=== PATIENT | male | born 1935 | race Caucasian/White ===

== ENCOUNTER 2016-09-08 15:32 | Inpatient (IN) | payer MEDICARE, OTHER ==
--- NOTE | ~2016-09-08 | HP ---
History And Physical [id number] [place]. [address] NAME: SHAHIDA HAMILTON : 35 STATUS : ADM IN [facility]#: [id number] AGE: 81 ADM/REG DATE : 09/08/16 MR#: [id number] REPORT SERV DATE: 09/08/16 DICTATED BY: HEIDI CAPPS DATE: 09/08/16 REPORT STATUS : Draft TRANSCRIBED BY: MODL DATE: 09/08/16 DATE OF ADMISSION: 09/08/2016 CHIEF COMPLAINT: Cough keeping him up at night. HISTORY OF PRESENT ILLNESS: This is a very pleasant 81-year-old male who has past medical history notable for orthostatic hypotension, metastatic prostate cancer, CKD stage 2/3, adrenal insufficiency, history of radiation esophagitis now resolved, history of cataracts, glaucoma, acid reflux, and history of ulcerative colitis per notes, presenting with basically cough for the past couple of weeks. His cough has been keeping him up at night and severe. He says that it is a dry cough. No fevers at home. He did present a few days ago to the Oncology office where he was treated with a course of Augmentin for possible sinusitis. Cough has continued to get worse and has, per reports, had temperatures of 100.4 at home. He was seen in the office today after a chest x-ray, which calls for possible radiation pneumonitis versus bilateral upper lobe pneumonias. Per Oncology, the amount of radiation he got was pretty low which is approximately 30 Gy, will be low for getting radiation pneumonitis. In the office today, it was 84%, improved to about 86% to 88% and was put on oxygen. PAST MEDICAL HISTORY: As above. Metastatic prostate cancer, reflux, history of orthostatic hypotension, BPH, and radiation esophagitis now resolved. SOCIAL HISTORY: He is . No longer smokes or drinks. He did have a history of smoking many years ago. FAMILY HISTORY: Parents lived to be 91 and 77. He did have a maternal grandmother who had cancer. REVIEW OF SYSTEMS: A full review of systems is obtained and is negative with the exception of the above HPI. PHYSICAL EXAMINATION: VITAL SIGNS: Here today temperature 98.4, pulse 84, blood pressure 162/82, saturating 94% on room air, and breathing 21 times a minute. GENERAL: This is a well-developed, well-nourished male, who appears in no acute distress. He is currently sitting up in the bed in his room. Alert and oriented x3. HEENT: Extraocular muscles are intact. Sclerae are anicteric. Pupils equal, round, and react to light. Moist mucous membranes. CARDIAC: Regular rate and rhythm with no appreciable murmurs. LUNGS: Lungs are clear bilaterally with no wheezing. ABDOMEN: Soft, nontender, and nondistended with no appreciable masses. EXTREMITIES: Lower extremities are warm and well perfused with no edema. SKIN: Warm, dry, and intact with no rashes. PSYCHIATRIC: The patient is cooperative and appropriate. LABORATORY DATA: Done in the office was last September 02 which has been reviewed. Chest x- History And Physical [address] [address] NAME: SHAHIDA HAMILTON : 35 STATUS : ADM IN [facility]#: [id number] AGE: 81 ADM/REG DATE : 09/08/16 MR#: [id number] REPORT SERV DATE: 09/08/16 DICTATED BY: HEIDI CAPPS DATE: 09/08/16 REPORT STATUS : Draft TRANSCRIBED BY: LIZZIE DATE: 09/08/16 ray from today, impression, bilateral upper lobe paramediastinal infiltrates, new since 07/29/2016; findings may represent bilateral pneumonia. If the patient has a history of recent radiation therapy, findings could represent 1. Post radiation pneumonitis given the distribution. 2. Bibasilar atelectasis. ASSESSMENT AND PLAN: This is an 81-year-old male with history of prostate cancer, status post some radiation for spinal metastasis, presenting with cough and chest x-ray concerning for pneumonia versus radiation pneumonitis. 1. Acute hypoxic respiratory failure. The patient will be admitted here and monitored. Currently, he is 94% on room air though he was 86% in the office. We will provide DuoNebs and monitor. 2. Possible pneumonia versus radiation pneumonitis. Instead of committing him to long- term antibiotics and repeat imaging at that time, we will go ahead and do a CT scan at this time to avoid unnecessary antibiotics if needed given that he recently did complete a course of Augmentin. 3. Metastatic prostate cancer. Oncology can follow along with us. 4. History of orthostatic hypotension. Continue outpatient medications and monitor. He is on midodrine 5 times a day. 5. Debility. He has improved with PT. We will resume home health at discharge. At this point, he will be admitted as observation. Hopefully not here long enough to get deconditioned. 6. Code status is full code. 7. DVT prophylaxis will be with enoxaparin. NORMA/LIZZIE Heidi Capps MD / [id number] CC: Heidi Capps MD
--- NOTE | ~2016-09-08 | DS ---
Discharge Summary [facility] [address] [place]. [address] NAME: SHAHIDA HAMILTON : 35 STATUS : DIS IN PAT#: [id number] AGE: 81 ADM/REG DATE : 09/10/16 MR#: [id number] REPORT SERV DATE: 09/12/16 DICTATED BY: EMANI RACHEL II DATE: 09/11/16 REPORT STATUS : Draft TRANSCRIBED BY: MODL DATE: 09/11/16 ADMISSION DATE: 09/10/2016 DISCHARGE DATE: 09/11/2016 DISCHARGE DIAGNOSES: 1. Acute hypoxic respiratory failure. 2. Radiation pneumonitis. 3. Metastatic prostate cancer. 4. Anemia. 5. Chronic kidney disease. 6. Weakness and deconditioning. 7. Benign prostatic hyperplasia. 8. History of radiation esophagitis, now resolved. 9. Orthostatic hypotension, on midodrine. CONSULTS: Dr. Coulter and Francesco Pelayo M.D. BRIEF HISTORY OF PRESENT ILLNESS: The patient is an 81-year-old male with the above past medical history, who presented to [facility] due to severe cough and shortness of breath. For detailed history and physical examination, please see Dr. Marks's note from 09/08/2016. 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 The patient was started on prednisone at 60 mg daily. Since starting steroids, the patient has noted improvement in his cough, feels better. He has been set up with home O2 and we will have him follow up in Pulmonary Clinic as well as with Dr. Pelayo in the next 2 weeks. DISCHARGE MEDICATIONS: 1. Xanax 0.25 mg p.o. at bedtime. 2. Brimonidine ophthalmic b.i.d. 3. Avodart 0.5 mg p.o. after supper. 4. Prednisolone ophthalmic q.48 hours. 5. Midodrine 5 mg p.o. b.i.d. 6. Prednisone 60 mg p.o. daily. 7. Zytiga 1000 mg p.o. at bedtime. 8. 1 tab p.o. daily. DISCHARGE INSTRUCTIONS: We will schedule the patient with a new patient appointment to see Pulmonary and otherwise follow with Dr. Francesco Pelayo in two weeks. VIANNEY/LIZZIE Discharge Summary [address] [address] NAME: SHAHIDA HAMILTON : 35 STATUS : DIS IN PAT#: [id number] AGE: 81 ADM/REG DATE : 09/10/16 MR#: [id number] REPORT SERV DATE: 09/12/16 DICTATED BY: EMANI RACHEL II DATE: 09/11/16 REPORT STATUS : Draft TRANSCRIBED BY: LIZZIE DATE: 09/11/16 Emani Rachel II, MD / [id number] CC: MD Tanja Valentine II, M.D.
[~2016-09-08 15:32] MED LIST: ALPHAGAN OPH; AVODART PO; B1100 PO; CALTRAT600 PO; EYE; FISH OIL PO; FISH OIL1200 MG PO; FLOMAX4 PO; GINGER ROOT PO; LUPRON IM; MAGIC MOUTHWASH PO/LIQ; MULTIPLE VIT PO; MURO1282% OPH; MURO1285% OPH; P5 PO; PREDFORTE OPH; PREDMILDOP OPH; PREDNISONE EYE DROP; PRESERVISION A1 EAC1 PO; PRILO PO; PRILOSEC40 MG PO; SAW PALMETTO; VITAMIN B-1500 MG PO; X25 PO; X5 PO; ZANTAC 150 PO; ZANTAC300 MG PO; ZINC PO; ZYTIGA250 MG PO; [UNRECOGNIZED DRUG - OTHER]
[2016-09-08] MEDS ORDERED: PROAMAT5 PO (16:43)
[2016-09-08] MEDS ORDERED: PROSTEON PO (16:44)
[2016-09-08] MEDS ORDERED: AUG500 PO (16:45)
[2016-09-08 17:58] LABS: BASOPHILS 0.1 %; BASOPHILS ABSOLUTE 0.01 10/3/uL (0.0-0.16); EOSINOPHILS 0.3 %; EOSINOPHILS ABSOLUTE 0.02 10/3/uL (0.0-0.53); HEMOGLOBIN 9.6 g/dL (13.6-17.8); IMMATURE GRANULOCYTES ABSOLUTE 0.07 10/3/uL (0.0-0.11); LYMPHOCYTES 7.8 %; LYMPHOCYTES ABSOLUTE 0.54 10/3/uL (0.67-4.30); MEAN CORPUS HGB CONC 32.2 g/dL (32.0-36.0); MEAN CORPUSCULAR HEMOGLOB 31.4 pg (26.0-34.0); MEAN CORPUSCULAR VOLUME 97.4 fL (80-100); MEAN PLATELET VOLUME 10.1 fL (9.2-13.0); MONOCYTES 6.1 %; MONOCYTES ABSOLUTE 0.42 10/3/uL (0.21-1.20); NEUTROPHILS 84.7 %; NEUTROPHILS ABSOLUTE 5.86 10/3/uL (2.02-8.40); RED CELL COUNT 3.06 10/6/uL (4.7-6.1); WHITE BLOOD CELLS 6.9 10/3/uL (4.5-10.5)
[2016-09-08 18:01] LABS: HEMATOCRIT 29.8 % (40.0-51.0); MANUAL DIFF NO %; PLATELET COUNT 300 10/3/uL (150-400); RBC DISTRIBUTION WIDTH 16.9 % (12.0-16.0)
[2016-09-08 18:12] LABS: BUN (BLOOD UREA NITROGEN) 18 MG/DL (6-23); CALCIUM, SERUM 8.4 MG/DL (8.5-10.4); CHLORIDE, SERUM 104 MMOL/L (96-112); CO2 (CARBON DIOXIDE) 26 MMOL/L (24-34); CREATININE 1.43 MG/DL (0.70-1.30); GFR AFRICAN AMERICAN 53 ML/MIN (>=60); GFR NON AFRICAN AMERICAN 46 ML/MIN (>=60); GLUCOSE, SERUM 103 MG/DL (60-99); POTASSIUM, SERUM 3.8 MMOL/L (3.5-5.3); SODIUM, SERUM 139 MMOL/L (135-148)
[2016-09-08 18:33] LABS: PROCALCITONIN 0.17 ng/mL (<0.5)
[2016-09-09 06:11] LABS: HEMATOCRIT 26.9 % (40.0-51.0); MEAN CORPUS HGB CONC 33.5 g/dL (32.0-36.0); MEAN CORPUSCULAR HEMOGLOB 32.7 pg (26.0-34.0); MEAN CORPUSCULAR VOLUME 97.8 fL (80-100); MEAN PLATELET VOLUME 10.3 fL (9.2-13.0); PLATELET COUNT 291 10/3/uL (150-400); RED CELL COUNT 2.75 10/6/uL (4.7-6.1); WHITE BLOOD CELLS 5.3 10/3/uL (4.5-10.5)
[2016-09-09 06:14] LABS: MANUAL DIFF YES %
[2016-09-09 06:24] LABS: BUN (BLOOD UREA NITROGEN) 16 MG/DL (6-23); CALCIUM, SERUM 7.9 MG/DL (8.5-10.4); CHLORIDE, SERUM 108 MMOL/L (96-112); CO2 (CARBON DIOXIDE) 25 MMOL/L (24-34); CREATININE 1.36 MG/DL (0.70-1.30); GFR AFRICAN AMERICAN 56 ML/MIN (>=60); GFR NON AFRICAN AMERICAN 48 ML/MIN (>=60); GLUCOSE, SERUM 90 MG/DL (60-99); POTASSIUM, SERUM 4.1 MMOL/L (3.5-5.3); SODIUM, SERUM 142 MMOL/L (135-148)
[2016-09-09 06:36] LABS: BAND NEUTROPHILS 8 %; EOSINOPHILS 1 %; EOSINOPHILS ABSOLUTE (CALC) 0.05 10/3/uL (0.0-0.53); IMMATURE GRANS ABSOLUTE (CALC) 0.11 10/3/uL (0.0-0.11); LYMPHOCYTES 7 %; LYMPHOCYTES ABSOLUTE (CALC) 0.37 10/3/uL (0.67-4.30); METAMYELOCYTES 2 %; MONOCYTES 5 %; MONOCYTES ABSOLUTE (CALC) 0.27 10/3/uL (0.21-1.20); NEUTROPHILS ABSOLUTE (CALC) 4.51 10/3/uL (2.02-8.40); PLATELET ESTIMATE ADQ (ADEQUATE); POLYCHROMASIA 1+ (2-5/OIF) (0-1/OIF); SEGMENTED NEUTROPHIL (0) 77 %; TOTAL NUCLEATED CELLS 100; TOXIC GRANULATION 1+
== END 2016-09-11 13:30 | disposition home or self-care (01) | DRG 205 ==
LOC: 4SO 15:32
PROVIDERS: Internal Medicine
DX: J70.0 Acute pulmonary manifestations due to radiation (principal); J96.01 Acute respiratory failure with hypoxia; C79.51 Secondary malignant neoplasm of bone; E27.40 Unspecified adrenocortical insufficiency; K51.90 Ulcerative colitis, unspecified, without complications; N18.3 Chronic kidney disease, stage 3 (moderate); J98.11 Atelectasis; R50.9 Fever, unspecified; Z85.46 Personal history of malignant neoplasm of prostate; K21.9 Gastro-esophageal reflux disease without esophagitis; R53.81 Other malaise; Z87.891 Personal history of nicotine dependence; H40.9 Unspecified glaucoma; H35.30 Unspecified macular degeneration; D64.9 Anemia, unspecified
CPT/HCPCS: 71020; 71250; 80048; 84145; 85025; 87040; 94640; 97161-GP; A9270-GY; G8978-CJ-GP; G8979-CI-GP; G8980-CI-GP; J0456; J2930